=== PATIENT | female | born 1955 | race African-American/Black ===

== ENCOUNTER 2022-01-16 10:51 | Emergency (ER) | payer BC, MEDICAID ==
[~2022-01-16] VITALS: Ht 160 cm; Wt 105.0 kg
[2022-01-16 11:11] VITALS: BP 159/77
[2022-01-16] MEDS ORDERED: OFLO5DRO4 LEFT EAR (11:17)
[2022-01-16] MEDS ORDERED: ESCI10TA PO (11:20)
[2022-01-16] MEDS ORDERED: LOSA50TA41 PO (11:20)
[2022-01-16] MEDS ORDERED: METF-414 PO (11:20)
[2022-01-16] MEDS ORDERED: LISI-186 PO (11:20)
[2022-01-16] MEDS ORDERED: HYDR-4001 PO (11:20)
== END 2022-01-16 12:26 | disposition home or self-care (01) ==
LOC: ER 10:51
DX: H60.92 Unspecified otitis externa, left ear (principal); I10 Essential (primary) hypertension; E11.9 Type 2 diabetes mellitus without complications; E78.00 Pure hypercholesterolemia, unspecified; Z79.84 Long term (current) use of oral hypoglycemic drugs
CPT/HCPCS: 82962; 99283